=== PATIENT | female | born 1985 | race African-American/Black ===

== ENCOUNTER 2021-06-26 22:07 | Emergency (ER) | payer MEDICAID, OTHER ==
[~2021-06-26] VITALS: Ht 160 cm; Wt 45.0 kg
[2021-06-26] MEDS ORDERED: FAMOTIDINE 20MG/2ML VIAL IV STA (23:26)
[2021-06-26] MEDS ORDERED: MORPHINE SULFATE 4 MG/ML CPJ (NOT FOR IM USE) IV STA (23:26)
[2021-06-26] MEDS ORDERED: ONDANSETRON HCL 4MG/2ML INJ IV STA (23:26)
[2021-06-26] MEDS ORDERED: SODIUM CHLORIDE 0.9% 1,000 ML IV ONE (23:30)
[2021-06-26] MEDS ORDERED: MORPHINE SULFATE 2 MG/ML CPJ (NOT FOR IM USE) IV NR (23:54)
[2021-06-27 00:42] LABS: CLARITY URINE CLOUDY (CLEAR); COLOR URINE YELLOW (YELLOW); KETONES URINE TRACE (NEGATIVE); LEUKOCYTE ESTERASE URINE NEGATIVE (NEGATIVE); NITRITE URINE NEGATIVE (NEGATIVE); OCCULT BLOOD URINE NEGATIVE (NEGATIVE); PROTEIN URINE NEGATIVE (NEGATIVE); SPECIFIC GRAVITY URINE 1.028 (1.005-1.030)
[2021-06-27 01:02] LABS: HEMATOCRIT. 51.7 % (36.0-48.0); HEMOGLOBIN. 17.2 g/dL (12.0-16.0); MEAN CORPUSCULAR HEMOGLOBIN 29.2 pg (28.0-32.0); MEAN CORPUSCULAR VOLUME 87.5 fL (81.0-99.0); MEAN PLATELET VOLUME 8.9 fl (7.4-10.4); PLATELET 334 x1000/uL (130-400); RED BLOOD CELL COUNT 5.91 mill/uL (4.2-5.4)
[2021-06-27 01:09] LABS: CHLORIDE 97 mEq/L (98-107)
[2021-06-27 01:10] LABS: HCG SCREEN NEGATIVE
[2021-06-27] MEDS ORDERED: METRONIDAZOLE 500 MG PREMIX 100 ML IV SCH (01:45)
[2021-06-27] MEDS ORDERED: SODIUM CHLORIDE 0.9% 1,000 ML IV ONE (01:45)
[2021-06-27] MEDS ORDERED: PIPERACILLIN/TAZ 3.375G PREMIX 50 ML IV SCH (01:45)
[2021-06-27 02:23] LABS: PLATELET ESTIMATE NORMAL
[2021-06-27] MEDS ORDERED: MORPHINE SULFATE 2 MG/ML CPJ (NOT FOR IM USE) IV SCH (04:00)
[2021-06-27] MEDS ORDERED: MORPHINE SULFATE 4 MG/ML CPJ (NOT FOR IM USE) IV ONE (04:00)
[2021-06-27 04:18] VITALS: BP 132/99
== END 2021-06-27 05:38 | disposition left against medical advice (07) ==
LOC: ER 22:07 → EDBEDREQTM 06-27 04:48 → EDBEDREQ 06-27 04:48 → EDBEDREQSVC 06-27 04:48 → ER 06-27 05:38 → CANBEDREQ 06-27 07:40
DX: K92.2 Gastrointestinal hemorrhage, unspecified (principal); E87.2 Acidosis; N19 Unspecified kidney failure
CPT/HCPCS: 36415; 71045; 74176; 80053; 81003; 81025; 83605; 83690; 84703; 85025; 87040; 93005; 96361; 96365; 96375; 96376; 99291; J2270; J2405; J2543; J3490; J7030